=== PATIENT | male | born 1995 | race African-American/Black ===

== ENCOUNTER 2019-01-27 10:26 | Emergency (ER) | payer OTHER ==
[~2019-01-27] VITALS: Ht 182.9 cm; Wt 68.0 kg
[2019-01-27] MEDS ORDERED: ISOT30CA PO (10:36)
[2019-01-27] MEDS ORDERED: CEFTRIAXONE 500 MG VIAL ONE (10:57)
[2019-01-27] MEDS ORDERED: LIDOCAINE HCL 1% 20 ML VIAL ONE (10:57)
[2019-01-27] MEDS ORDERED: CEFTRIAXONE 500 MG VIAL IM ONE (11:00)
--- NOTE | 2019-01-27 11:03 | NUR ---
Patient discharged to home in stable conditon. Written and verbal after care instructions given to patient. Patient verbalizes understanding of instructions.
== END 2019-01-27 11:08 | disposition home or self-care (01) ==
LOC: ER 10:26
DX: N34.2 Other urethritis (principal); Z79.899 Other long term (current) drug therapy
CPT/HCPCS: 96372; 99283; J0696; J3490; A4663

== ENCOUNTER 2019-07-07 02:15 | Emergency (ER) | payer OTHER ==
[~2019-07-07] VITALS: Ht 182.9 cm; Wt 68.0 kg
[~2019-07-07 02:15] MED LIST: ISOT30CA PO
--- NOTE | 2019-07-07 02:29 | NUR ---
PT ABLE TO PROVIDE URINE SAMPLE PT ESTHER NAVARRETE AT BEDSIDE FOR HX AND PHYSICAL SIDERAILSX2 UP, BED AT LOWEST POSITION MONITORED ACCORDINGLY
[2019-07-07 02:36] LABS: *BILIRUBIN,URIN NEGATIVE (NEGATIVE); *BLOOD, URINE NEGATIVE (NEGATIVE); *CLARITY,URINE CLEAR (CLEAR); *COLOR,URINE LIGHT YELLOW (YELLOW); *KETONES,URINE NEGATIVE (NEGATIVE); *UROBILINOGEN,URINE 0.2 E.U./dl (NORMAL); LEUKOCYTE ESTERASE ,URINE NEGATIVE (NEGATIVE); NITRITE, URINE NEGATIVE (NEGATIVE); PH,URINE 6.5 (5.0-8.0); UGLUCOSE NEGATIVE (NEGATIVE)
[2019-07-07] MEDS ORDERED: AZITHROMYCIN 250 MG TABLET ONE (02:44)
[2019-07-07] MEDS ORDERED: AZITHROMYCIN 250 MG TABLET PO ONE (02:45)
--- NOTE | 2019-07-07 02:46 | NUR ---
PT ABLE TO TOLERATE PO MEDS ORDERED
--- NOTE | 2019-07-07 02:56 | NUR ---
Patient discharged to home in stable conditon. Written and verbal after care instructions given. Patient verbalizes understanding of instructions. AMBULATORY W/ STABLE GAIT ALL BELONGINGS W/ PT
[2019-07-07 02:57] VITALS: BP 148/62
== END 2019-07-07 02:58 | disposition home or self-care (01) ==
LOC: ER 02:19
DX: N48.89 Other specified disorders of penis (principal); R30.0 Dysuria; Z79.899 Other long term (current) drug therapy
CPT/HCPCS: A4663; Q0144